=== PATIENT | female | born 1975 | race African-American/Black ===

== ENCOUNTER 2021-03-21 22:03 | Emergency (ER) | payer OTHER ==
[2021-03-22 00:08] LABS: CORONAVIRUS 2019 SARS-COV-2 NEGATIVE (NEGATIVE); INFLUENZA A NAA NEGATIVE (NEGATIVE)
[2021-03-22] MEDS ORDERED: ONDANSETRON ODT4 MG PO (01:37)
== END 2021-03-22 01:53 | disposition home or self-care (01) ==
LOC: FER 22:03
PROVIDERS: Emergency Medicine
DX: R05.9 Cough, unspecified (principal); R11.10 Vomiting, unspecified; R19.7 Diarrhea, unspecified; R51.9 Headache, unspecified; I10 Essential (primary) hypertension; Z20.822 Contact with and (suspected) exposure to COVID-19; Z79.899 Other long term (current) drug therapy
CPT/HCPCS: 99284; J1885; U0002

== ENCOUNTER 2021-06-20 14:25 | Emergency (ER) | payer OTHER ==
[~2021-06-20 14:25] MED LIST: ONDANSETRON ODT4 MG PO
[2021-06-20] MEDS ORDERED: CYCLOBENZAPRINE10 MG PO (18:31)
[2021-06-20] MEDS ORDERED: MOTRIN600 MG PO (18:31)
== END 2021-06-20 18:36 | disposition home or self-care (01) ==
LOC: FER 14:25
DX: S16.1XXA Strain of muscle, fascia and tendon at neck level, initial encounter (principal); S39.012A Strain of muscle, fascia and tendon of lower back, initial encounter; I10 Essential (primary) hypertension; V49.60XA Unspecified car occupant injured in collision with unspecified motor vehicles in traffic accident, initial encounter
CPT/HCPCS: 72100; 72125